=== PATIENT | male | born 1945 | race Caucasian/White ===

== ENCOUNTER 2017-12-26 08:14 | Inpatient (IN) | payer MEDICARE, BC ==
[~2017-12-26] VITALS: Ht 172.7 cm; Wt 93.4 kg
[2017-12-26] VITALS (12 sets, daily range): BP systolic 112–127; BP diastolic 70–91
[~2017-12-26 08:14] MED LIST: Gelfoam Absorbable 1gm powder pkt TOPIC ONE
[2017-12-26] MEDS ORDERED: Thrombin 5000 units spray kit TOPIC ONE (08:38)
[2017-12-26] MEDS ORDERED: Thrombin 5000 units TOPIC ONE ×2 (08:38→12:55)
[2017-12-26] MEDS ORDERED: Vancomycin 1gm inj IVPB ONE ×2 (08:38→09:56)
[2017-12-26] MEDS ORDERED: Lidocaine 1% 10mg/ml/Epi 0.005mg/ml 30ml vial INJ ONE (08:39)
[2017-12-26] MEDS ORDERED: Bacitracin 50000 Units Vial ONE (08:39)
[2017-12-26] MEDS ORDERED: Bupivacaine w/Epi 0.5% 30ml Vial INJ ONE (08:39)
[2017-12-26] MEDS ORDERED: Gelfoam Size TOPIC ONE (08:39)
[2017-12-26] MEDS ORDERED: MELOXICAM15 MG PO (09:16)
[2017-12-26] MEDS ORDERED: ASPIR 8181 MG ORAL (09:16)
[2017-12-26] MEDS ORDERED: ANASTROZOLE1 MG PO (09:16)
[2017-12-26] MEDS ORDERED: NORCO 5-325 TA1 EACH ORAL (09:16)
[2017-12-26] MEDS ORDERED: AMBIEN10 MG ORAL (09:16)
[2017-12-26] MEDS ORDERED: TESTOSTERONE PRO MC (09:16)
[2017-12-26] MEDS ORDERED: SINGULAIR10 MG ORAL (09:16)
[2017-12-26] MEDS ORDERED: OLOPATADINE H30.5 GM NS (09:16)
[2017-12-26] MEDS ORDERED: fentaNYL 100 mcg/2 mL IV ONE ×2 (09:34→10:06)
[2017-12-26] MEDS ORDERED: Midazolam 2mg/2ml Inj ONE ×2 (09:34→10:06)
[2017-12-26] MEDS ORDERED: Lidocaine 1% MPF 10mg/ml 5ml ONE ×2 (09:37→10:07)
[2017-12-26] MEDS ORDERED: Zemuron 50mg/5ml Inj IV ONE (09:58)
[2017-12-26] MEDS ORDERED: LR 1000ml ONE ×2 (10:00)
[2017-12-26] MEDS ORDERED: Propofol 1,000mg/ 100ml btl IV ONE (10:00)
[2017-12-26] MEDS ORDERED: Neostigmine 1mg/ml 10ml Inj ONE (10:00)
[2017-12-26] MEDS ORDERED: NS Irrig 1000ml ONE (10:00)
[2017-12-26] MEDS ORDERED: Sterile Water Irrig 1000ml IRRIG ONE (10:00)
[2017-12-26] MEDS ORDERED: Lidocaine 1% Plain 30 ml INJ ONE (10:09)
[2017-12-26] MEDS ORDERED: LR 1000ml 1,000 ML IVLG SCH (10:10)
--- NOTE | 2017-12-26 10:11 | Anethesia Preoperative Eval ---
Bunny Orozco MD 12/26/17 1011: Anesthesia Pre-op PMH/ROS General Date of Evaluation: Dec 26, 2017 Mallampati Score Class I : Soft palate, uvula, fauces, pillars visible Class II: Soft palate, uvula, fauces visible Class III: Soft palate, base of uvula visible Class IV: Only hard plate visible Allergies: Coded Allergies: PENICILLINS (Verified Allergy, Severe, 12/26/17) swelling, rash Patient NPO?: Yes NPO Date: Dec 25, 2017 NPO Time: 2300 Anesthesia Pre-op Phys. Exam Physician Exam Last Vital Signs Date Time Temp Pulse Resp B/P (MAP) Pulse Ox O2 Delivery O2 Flow Rate FiO2 12/26/17 09:06 97.7 77 18 124/91 (102) 97 12/26/17 09:06 Room Air Silas Weller MD 12/26/17 1131: Anesthesia Pre-op PMH/ROS General Date of Evaluation: Dec 26, 2017 Time of Evaluation: 10:05 Anesthesiologist: Janee ASA Score: ASA 2 Mallampati Classification: Class II Surgeon: Gris Diagnosis: Lumbar radiculopathy Surgical Procedure: L3 to S1 laminotomy with decompression Anesthesia History: none Allergies: Coded Allergies: PENICILLINS (Verified Allergy, Severe, 12/26/17) swelling, rash Medications: see eMAR Patient NPO?: Yes Past Medical History Cardiovascular: Denies: HTN, CAD, [place], valve dz, arrhythmia, other Pulmonary: Reports: RIAN; Denies: asthma, COPD, other Gastrointestinal/Genitourinary: Reports: GERD; Denies: CRI, ESRD, other Neurologic/Psychiatric: Reports: other - chronic pain; Denies: dementia, CVA, depression/anxiety, TIA Endocrine: Denies: DM, hypothyroidism, steroids, other HEENT: Denies: cataract (L), cataract (R), glaucoma, [place] (L), [place] (R), other Hematology/Immune: Denies: anemia, DVT, bleeding disorder, other Musculoskeletal/Integumentary: Reports: OA; Denies: RA, DJD, DDD, edema, other Other: obesity PMH Narrative: as above PSxH Narrative: Partial colectomy, knee scope Anesthesia Pre-op Phys. Exam Physician Exam Constitutional: NAD Neurologic: CN 2-12 intact Cardiovascular: RRR, no M/R/G Respiratory: CTA Gastrointestinal: other - obesity Airway Exam Mallampati Score: Class III MO: limited Neck: short ROM: full Teeth: missing Dentures: no upper, no lower Anesthesia Pre-op A/P Labs see chart Studies Pre-op Studies: EKG - NSR Risk Assessment & Plan Assessment: ASA 2 Plan: GA with ETT neuromonitoring Status Change Before Surgery: No Pre-Antibiotics Drug: Ancef 2 gr. Given Within 1 Hr of Incision: Yes Time Given: 10:49 Bunny Orozco MD Dec 26, 2017 10:11 Silas Weller MD Dec 26, 2017 11:31
[2017-12-26] MEDS ORDERED: oxyCODONE HCL/Acetaminophen 5/325mg ORAL PRN (10:15)
[2017-12-26] MEDS ORDERED: Atropine Sulfate 0.4mg/ml inj IVP PRN (10:15)
[2017-12-26] MEDS ORDERED: Metoclopramide 10mg/2ml Inj IVP PRN (10:15)
[2017-12-26] MEDS ORDERED: Meperidine 50mg/ml Inj(FOR RIGORS ONLY) IVP PRN (10:15)
[2017-12-26] MEDS ORDERED: Acetaminophen (Non formulary) 100 ML IV ONE (10:15)
[2017-12-26] MEDS ORDERED: Norco 5mg/325mg tab ORAL PRN (10:15)
[2017-12-26] MEDS ORDERED: fentaNYL 100 mcg/2 mL IV PRN ×2 (10:15→15:15)
[2017-12-26] MEDS ORDERED: DiphenhydrAMINE 50mg/ml Inj IVP PRN ×2 (10:15→15:15)
[2017-12-26] MEDS ORDERED: LORazepam Inj 2mg/ml 1ml IV PRN ×2 (10:15→15:15)
[2017-12-26] MEDS ORDERED: Midazolam 2mg/2ml Inj IVP PRN ×2 (10:15→15:15)
[2017-12-26] MEDS ORDERED: Ketorolac 30mg Inj IV PRN ×2 (10:15)
[2017-12-26] MEDS ORDERED: HYDROcodone/Acetamin 7.5/325 tab ORAL PRN (10:15)
[2017-12-26] MEDS ORDERED: Hydromorphone 0.5mg/0.5ml inj IVP PRN ×2 (10:15→15:15)
[2017-12-26] MEDS ORDERED: Dexamethasone 4mg/ml vial ONE (10:18)
[2017-12-26] MEDS ORDERED: Sodium Chloride 10ml vial INJ ONE (10:18)
--- NOTE | 2017-12-26 10:32 | Pre-Procedure Note/Attestation ---
Pre-Procedure Note/Attestation Complete Prior to Procedure Procedure Narrative: L3-S1 decompression/discectomy Indications for Procedure Pre-Operative Diagnosis: L3-S1 stenosis with LLE >>RLE radiculopathy Attestation I attest that I discussed the nature of the procedure; its benefits; risks and complications; and alternatives (and the risks and benefits of such alternatives ), prior to the procedure, with the patient (or the patient's legal claims customer service representative). I attest that, if there was a reasonable possibility of needing a blood transfusion, the patient (or the patient's legal claims customer service representative) was given the [facility] standardized written summary, pursuant to the [place] Blood Safety Act ([place] Health and Safety Code # 1645, as amended). I attest that I re-evaluated the patient just prior to the surgery and that there has been no change in the patient's H&P, except as documented below: Oliverio Landry MD Dec 26, 2017 10:32
--- NOTE | 2017-12-26 10:33 | Brief Operative Note ---
Immediate Post Operative Note Operative Note Pre-op Diagnosis: L3-S1 stenosis with LLE >>RLE radiculopathy Procedure: L3-S1 laminectomy, L45 discectomy Post-op Diagnosis: L Dural repair lysis of adhesions Post-op Diagnosis: same as pre-op Findings: consistent w/pre-op dx studies Surgeon: chelle Anesthesiologist: Dontae Anesthesia: general Specimen: none Complications: yes - durotomy Condition: stable Fluids: 1200 Estimated Blood Loss: volume - 200 Drains: none Implant(s) used?: No Oliverio Landry MD Dec 26, 2017 10:33
[2017-12-26] MEDS ORDERED: Glycopyrrolate 0.2mg/ml 1ml Vial ONE (13:41)
[2017-12-26] MEDS ORDERED: acetaZOLAMIDE 500mg Inj IVP SCH (14:15)
--- NOTE | 2017-12-26 14:41 | Immediate Post-Op Evaluation ---
Immediate Post-Op Evalulation Immediate Post-Op Evalulation Procedure: L3-L4-L5-S1 laminotomy with decompression Date of Evaluation: Dec 26, 2017 Time of Evaluation: 14:40 IV Fluids: 1200 Blood Products: none Estimated Blood Loss: 100 Urinary Output: 200 Blood Pressure Systolic: 114 Blood Pressure Diastolic: 68 Pulse Rate: 84 Respiratory Rate: 20 O2 Sat by Pulse Oximetry: 99 Temperature (Fahrenheit): 98.6 Pain Score (1-10): 1 Nausea: No Vomiting: No Patient Status: reacts, patent, extubated, none Hydration Status: adequate Silas Weller MD Dec 26, 2017 14:41
--- NOTE | 2017-12-26 14:51 | Diagnostic Imaging Report ---
Indication: Back pain. Technique: Intraoperative fluoroscopic images from spinal surgery submitted for archival the PACS. Operating surgeon: Oliverio Landry MD Total fluoroscopy time: 14.1 seconds Total fluoroscopy dose: 9.4 mGy. Comparison: None Findings: Multiple intraoperative fluoroscopic images submitted for archival the PACS. Initial image demonstrates scoliosis and multilevel degenerative change of the lumbar spine. Subsequent images in the lateral projection demonstrate surgical measurements projecting over the posterior aspects of the level of L5-S1 and subsequently L4-L5. Impression: Fluoroscopic images from spinal surgery as detailed above. See operative report.
[2017-12-26] MEDS ORDERED: acetaZOLAMIDE 500mg Inj ONE (15:30)
[2017-12-26] MEDS ORDERED: Milk of Magnesia 30ml Ud ORAL PRN (17:00)
--- NOTE | 2017-12-26 17:15 | Operative Note - Dictated ---
DATE OF OPERATION: 12/26/2017 SURGEON: Oliverio Landry M.D. BATTERY FILLER: None. ANESTHESIOLOGIST: Bunny Orozco M.D. ANESTHESIA TYPE: General endotracheal anesthesia. PREOPERATIVE DIAGNOSES: 1. Scoliosis, severe, lumbar spine. 2. Spinal stenosis, L3 through S1. 3. Severe right greater than left foraminal stenosis and radiculopathy. 4. Left-sided disc herniation L5-S1 with cephalad extrusion under the L5 nerve root. OPERATION PERFORMED: 1. Laminectomy bilateral performed through a left-sided approach at L3-L4, L4-L5, L5-S1. 2. Discectomy L5 (disc extrusion from the L5-S1 level, but with cephalad migration to above the L5 nerve root). 3. Severe stenosis and deformity complicating the procedure above and beyond normal decompression. 4. Need for lysis of adhesions due to severe chronic deformity and inflammatory changes. 5. Dural repair left side at the level of the L4-L5 interspace. 6. Use of operating microscope. 7. Use of fluoroscopy for localizing purposes. 8. Neurodiagnostic monitoring. INDICATIONS: The patient is a very pleasant gentleman with chronic problems with regards to his back and pain down his right lower extremity. Recently, however, the pain has become very severe, but on the left side. MRI confirmed a new disc herniation left side, L5-S1. The patient does have epidural lipomatosis at L3 through S1 with notable stenosis both centrally and lateral recess. There is foraminal stenosis, right side greater than left at the L5-S1 level. Chronic pain management has been required to keep his symptoms under control. They have been progressively worsening. I did discuss with him the option of a spinal fusion, scoliosis correction versus decompression alone. He sought multiple opinions and elected to proceed with decompression alone. Due to the significant deformity, I offered him a minimally invasive decompression so as to not further significantly destabilize the spine. RISKS NOTE: The patient was explained in detail risks, benefits of surgery to include, but not be limited to those of bleeding, infection, damage to nerves, vessels, tendons, anesthetic risk, allergic reaction, aspiration, possibly . The patient understood and wished to proceed. OPERATIVE PROCEDURE IN DETAIL: The patient was taken to the operative suite. After general endotracheal anesthesia was obtained, Hein catheter was placed. He was turned prone onto a radiolucent table. Fluoroscope was brought into better identify the segments and the degree of deformity. At this point, the skin was marked after needle was placed and fluoroscopically the levels were identified. The back was then prepped and draped in usual sterile fashion. A midline incision was carried out from L3 through S1. Subperiosteal dissection was carried out bilaterally. The fluoroscope was used to identify the L5-S1 interspace. At this point, with use of a high-speed drill under microscopic visualization, laminotomy of the L5 level was performed. Medial facetectomy was performed. The anatomy was markedly altered and this decompression was particularly made far more difficult due to the patient's deformity, chronic inflammatory change, and spondylosis. At this point, the ligamentum flavum was identified and it was removed in a piecemeal fashion. It was noted that due to the deformity, the dural sac was shifted towards the left side, which then allowed me to perform a decompression of the lateral recess on the right side through a left-sided approach. At this point, the laminectomy was extended all the way up to the L3 level. In this process, we were able to remove in a piecemeal fashion the lamina using high-speed drill as well as curved curettes and Kerrison punch as well as removal of the ligamentum flavum. Extensive facet hypertrophy was noted at L4-L5 and L3-L4. As we extended cephalad at the L5 nerve roots, we were able to palpate significant fullness more general, aggression generous, lateral decompression was performed so as to allow us to be lateral to the dural sac and then be able to mobilize the dural sac medially at or about the level of the L5 vertebra. At this point, we were able to place a nerve root retractor and gently retract. Immediately on the left side, identifying the disc extrusion. The disc extrusion was removed in a piecemeal fashion. Copious irrigation was performed. FloSeal was applied to achieve hemostasis. At this point, it was elected not to perform a discectomy of the disc space itself due to the patient's deformity and the risk for further destabilization. At this point, the dissection was carried out further cephalad at the L4-L5 level and the facet joint was noted to be extremely hypertrophied and adherent to the dural sac. A shell of facet was removed and in the process two punctate areas of avulsion of the dura were noted. This area was packed off. Dissection was carried out all the way to the lamina of L3 and a inferior laminectomy of L3 was achieved. Through this left-sided approach, a laminotomy of the contralateral side was performed by removing the ligamentum flavum and the inner table of the lamina. FloSeal was applied. Packing was applied. Attention was then turned to the L4 level where there was a dural leak and in a running fashion using 6-0 Prolene, the dura was repaired in a watertight fashion. At this point, copious irrigation was applied. The left side was packed off. The right side was visualized and fluoroscopically the L5-S1 interspace was identified. Laminectomy of L5 and superior portion of S1 and medial facetectomy was achieved essentially skeletonizing the L5 nerve root through the neural foramina. Copious irrigation was performed. FloSeal was then applied on the left side. I was able to place a small piece of DuraGen on the dural repair as well as 4 mL of fibrin glue/Tisseel. Once this was achieved and a watertight closure was achieved, decision was made to close. Please note that prior to application of the DuraGen and Tisseel, copious irrigation was performed. The fascia was repaired using #1 Vicryl, subcutaneous closure using 2-0 Vicryl. Dermabond was applied. Please note that a drain was not placed due to the potential risk of problems with CSF leakage. A sterile dressing was applied. The patient was turned onto his back, will be transferred to recovery room in stable condition. Oliverio Landry M.D. DR: FLORINA JOB#: [id number] CC: YONNY
[2017-12-26] MEDS: Docusate 100mg cap ORAL SCH (18:04)
[2017-12-26] MEDS: D5 1/2NS 1,000 ML IV SCH (18:05)
[2017-12-26] MEDS ORDERED: HYDROmorphone 1mg/ml Carpuject SUBQ SCH (20:28)
[2017-12-26] MEDS ORDERED: Zolpidem 5mg tab ORAL PRN ×3 (20:30→20:45)
[2017-12-26] MEDS: ceFAZolin sod 1 GM in D5W 55 ML IV SCH (21:12)
[2017-12-26] MEDS: Dronabinol 2.5mg Cap ORAL SCH (22:21)
--- NOTE | 2017-12-26 23:30 | Consultation ---
DATE OF CONSULTATION: 12/26/2017 CONSULTING PHYSICIAN: Kale Benavidez M.D. REFERRING PHYSICIAN: Oliverio Landry M.D. REASON FOR CONSULTATION: Acute pain consult. Dear Dr. Oliverio Landry, Thank you kindly for consulting me to evaluate and render an opinion as to how to proceed in the management of the acute postoperative lumbar spine pain after multiple level lumbar spine surgery today. I saw the patient at bedside on your request to help with his postoperative pain control. I saw the patient at bedside. I performed detailed history and physical examination. I discussed the case with the hospital pharmacist, Jus, along with yourself, Dr. Landry. I reviewed the medical record in detail including advanced directives. PAST MEDICAL HISTORY: 1. Acute postoperative lumbar spine pain, status post multiple level lumbar spine surgery by Dr. Oliverio Landry in December 2017. 2. Elderly age. 3. Incidental dural leak, tear. 4. Insomnia. 5. Asthma. 6. 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 7. Distant tobacco usage. 8. Mild obesity. 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 ALLERGIES: Penicillin. MEDICATIONS AT HOME: Baby aspirin, Arimidex, Davis, meloxicam, Singulair, olopatadine, testosterone, Ambien. SOCIAL HISTORY: The patient lives in [place]. For the past 3 months, he has been seeing a medical marijuana doctor to help with his pain. He has been using sublingual marijuana a couple of times per week to help with pain and insomnia. FAMILY HISTORY: Diabetes, stroke, coronary artery disease. REVIEW OF SYSTEMS: Per the hospitalist. PHYSICAL EXAMINATION: VITAL SIGNS: Age 72. Height 5 feet 8 inches, weight 209 pounds, body-mass index 31. HEENT: Normocephalic, atraumatic. CHEST: Clear to auscultation. HEART: Regular rate and rhythm. BACK: Lumbar spine, pain with logrolling. Moving all extremities x4. NEUROLOGIC: Detailed neurologic exam per Dr. Landry. LABORATORY STUDIES: From December 18, 2017, shows white count 6, hematocrit 48, platelets 167,000. INR 1.0. BUN 29, creatinine 1.1, sodium 143, potassium 4.5, chloride 108, bicarbonate 25, calcium 10.0, glucose 77. Urinalysis is negative. White count 7, hematocrit 47, platelets 182,000. A 12-lead EKG shows normal sinus rhythm, ventricular rate 71. Preoperative chest x-ray shows no active cardiopulmonary disease. MRI of lumbar spine shows 5 mm broad-based disc protrusion at L5-S1, 2 mm retrolisthesis of L4 on L5, 3 mm retrolisthesis of L2 on L3, with 5 mm disk osteophyte complex. IMPRESSION: 1. Acute postoperative lumbar spine pain, status post multiple level lumbar spine surgery by Dr. Oliverio Landry in December 2017. 2. Elderly age. 3. Incidental dural leak, tear. 4. Insomnia. 5. Asthma. 6. 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 7. Distant tobacco usage. 8. Mild obesity. RECOMMENDATIONS: The patient is a 72-year-old gentleman. He had an intrathecal dural tear and will remain on bed rest in the flat position per Dr. Landry. To help with discomfort while in the bed-rest condition, I have devised the following analgesic plan. The patient has used oxycodone or Percocet in the past. He states Percocet has been working stronger than the Davis, which he had been taking in the past. He is a recovering alcoholic and does not use any benzodiazepines at home. He quit tobacco long ago, but has been using sublingual marijuana a couple of times per week for the past 3 months. I recommended the patient a trial of Marinol this evening for baseline analgesia with an alternate between breakthrough subcutaneous doses of Dilaudid 1 mg every three hours p.r.n. along with oxycodone 10 mg orally every three hours p.r.n. as well. The patient is a heavy coffee drinker, drinking at least 2 to 3 cups per day. He currently has a strong bilateral frontal headache. This could be both caffeine withdrawal as well as symptoms from the spinal leak. I have moved the position of his bed back to completely supine, per the surgeon. We will continue to treat the patient symptomatically. Sequential compression pneumatic devices have been ordered for DVT prophylaxis while the patient will be on bed rest. I will defer usage of incentive spirometer to the surgeon, Dr. Landry. if permitted after his dural leak. I have ordered Zofran 4 mg intravenously every 4 hours p.r.n. for nausea or vomiting complaints. I have ordered Benadryl 25 mg q.6 hours in case of any itching complaints. I have ordered Mylanta 30 mL q.6 hours in case of any GERD symptom exacerbation. I will place the patient on b.i.d. Pepcid for GI ulcer prophylaxis. I have also ordered a dose of Mylanta 30 mL q.6 hours in case of any GERD symptom exacerbation. The patient does use Ambien chronically for his insomnia. I have made it available on a p.r.n. basis. I will defer the patient's other medical issues to the hospitalist. Kale Benavidez M.D. DR: Xena JOB#: [id number] CC:
[2017-12-26] MEDS: oxyCODONE 5mg IR tab ORAL PRN (23:31)
[2017-12-27 00:15] VITALS: BP 124/71
[2017-12-27] MEDS: D5 1/2NS 1,000 ML IV SCH ×3 (02:03→23:46)
[2017-12-27] MEDS: HYDROmorphone 1mg/ml Carpuject SUBQ PRN ×5 (02:03→21:30)
[2017-12-27 04:12] VITALS: BP 128/75
[2017-12-27] MEDS: ceFAZolin sod 1 GM in D5W 55 ML IV SCH ×2 (05:31→13:05)
[2017-12-27 06:33] LABS: BASOPHILS % (AUTO) 0.3 % (0.0-2.0); HEMATOCRIT 39.1 % (42.0-52.0); HEMOGLOBIN 13.6 G/DL (14.2-18.0); LYMPHOCYTES % (AUTO) 10.4 % (20.0-45.0); MEAN CORPUSCULAR VOLUME 90 FL (80-99); MONOCYTES % (AUTO) 6.2 % (1.0-10.0); NEUTROPHILS % (AUTO) 83.1 % (45.0-75.0); PLATELET COUNT 185 K/UL (150-450); RED BLOOD COUNT 4.36 M/UL (4.70-6.10); RED CELL DISTRIBUTION WIDTH 10.9 % (11.6-14.8); WHITE BLOOD COUNT 10.8 K/UL (4.8-10.8)
[2017-12-27 08:00] VITALS: BP 105/68
[2017-12-27] MEDS: Anastrazole 1mg tab ORAL SCH (08:36)
[2017-12-27] MEDS: Docusate 100mg cap ORAL SCH ×2 (08:37→17:24)
--- NOTE | 2017-12-27 08:38 | Orthopedic Spine Progress Note ---
Ortho Spine - Progress Note Subjective Symptoms: c/o post-op back pain, improved - as compared to pre-op, other - mild VENEGAS Objective Vital Signs: Last 24 Hour Vital Signs Date Time Temp Pulse Resp B/P (MAP) Pulse Ox O2 Delivery O2 Flow Rate FiO2 12/27/17 08:07 Nasal Cannula 2.0 12/27/17 08:00 98.8 89 19 105/68 (80) 100 12/27/17 04:12 98.5 94 16 128/75 (92) 97 12/27/17 00:15 98.2 93 18 124/71 (88) 97 12/26/17 21:00 Nasal Cannula 2.0 12/26/17 20:16 98.7 91 18 127/85 (99) 97 12/26/17 17:00 98.4 90 18 118/72 (87) 94 12/26/17 16:00 Nasal Cannula 2.0 12/26/17 16:00 98.4 95 18 119/80 (93) 95 12/26/17 15:40 98.6 12/26/17 15:40 98.6 88 15 115/73 96 Nasal Cannula 3 12/26/17 15:30 80 15 113/72 96 Nasal Cannula 3 12/26/17 15:15 80 13 112/70 96 Nasal Cannula 3 12/26/17 15:10 91 15 126/76 97 Nasal Cannula 3 12/26/17 15:00 94 18 122/78 97 Nasal Cannula 3 12/26/17 14:52 91 16 118/77 97 Simple Mask 6 12/26/17 14:41 84 20 99 12/26/17 14:37 99 16 112/76 97 Simple Mask 6 12/26/17 14:32 98.2 92 20 114/77 97 Simple Mask 6 12/26/17 09:06 97.7 77 18 124/91 (102) 97 12/26/17 09:06 Room Air I&O: Intake and Output 12/26/17 12/27/17 18:59 06:59 Intake Total 1500 ml 1690 ml Output Total 800 ml 1300 ml Balance 700 ml 390 ml Intake Oral 200 ml 480 ml IV Total 1300 ml 1210 ml Output Urine Total 700 ml 1100 ml Emesis 200 ml Estimated Blood Loss 100 ml # Voids 1 1 Drains: none Neuro Status: normal Assessment Post-op Diagnosis: L Dural repair lysis of adhesions Procedure Performed: L3-S1 laminectomy, L45 discectomy Plan Plan: PT - logroll instruction for 24 hrs, pain management Additional Comments: cont flat in bed x 24 hrs. sitting tiral tomorrow Oliverio Landry MD Dec 27, 2017 08:38
[2017-12-27] MEDS ORDERED: TESTOSTERONE 200 MG/ML TOPIC SCH (09:00)
[2017-12-27] MEDS ORDERED: Aspirin EC 81mg tab ORAL SCH (09:00)
[2017-12-27] MEDS ORDERED: Meloxicam 15 MG TAB ORAL SCH (09:00)
--- NOTE | 2017-12-27 11:28 | Internal Med Progress Note ---
Subjective Date of Service: Dec 27, 2017 Physician Name SeguraAntoine Attending Physician Oliverio Landry MD Current Medications Medications (Trade) Dose Ordered Sig/Pam Route PRN Reason Start Time Stop Time Status Last Admin Dose Admin Acetaminophen (Tylenol) 650 mg Q4H PRN ORAL headache or temp>101 12/26/17 17:00 01/25/18 16:59 Acetaminophen/ Butalbital/ Caffeine (Fioricet) 1 tab Q8H PRN ORAL headache 12/26/17 20:15 01/25/18 20:14 Al Hydroxide/Mg Hydroxide (Mylanta) 30 ml Q6H PRN ORAL gerd/dyspepsa 12/26/17 20:15 01/25/18 20:14 Anastrozole (Arimidex) 1 mg DAILY ORAL 12/27/17 09:00 01/26/18 08:59 12/27/17 08:36 Cefazolin Sodium 1 gm/Dextrose 55 ml @ 110 mls/hr Q8H IV 12/26/17 21:30 12/27/17 13:59 12/27/17 05:31 Dextrose/Sodium Chloride 1,000 ml @ 100 mls/hr Q10H IV 12/26/17 17:00 01/25/18 16:59 12/27/17 02:03 Diphenhydramine HCl (Benadryl) 25 mg Q6H PRN ORAL Itching 12/26/17 20:15 01/25/18 20:14 Docusate Sodium (Colace) 100 mg TWICE A DAY ORAL 12/26/17 18:00 01/25/18 17:59 12/27/17 08:37 Dronabinol (Marinol) 2.5 mg Q24H ORAL 12/26/17 22:00 01/25/18 21:59 12/26/17 22:21 Famotidine (Pepcid) 20 mg BID ORAL 12/26/17 21:00 01/25/18 20:59 12/27/17 08:36 Hydromorphone HCl (Dilaudid) 1 mg Q3H PRN SUBQ Severe Breakthru Pain (>7) 12/26/17 20:30 01/02/18 20:29 12/27/17 06:21 Magnesium Hydroxide (Mom) 30 ml QIDPRN PRN ORAL Constipation 12/26/17 17:00 01/25/18 16:59 Ondansetron HCl (Zofran) 4 mg Q4H PRN IVP Nausea & Vomiting 12/26/17 20:15 01/25/18 20:14 12/27/17 02:24 Oxycodone HCl (Roxicodone) 10 mg Q3H PRN ORAL Moderate Breakthru Pain (5-7) 12/26/17 20:30 01/02/18 20:29 12/26/17 23:31 Promethazine HCl (Phenergan) 12.5 mg Q8H PRN IM Nausea & Vomiting 12/26/17 20:30 01/25/18 20:14 Zolpidem Tartrate (Ambien) 5 mg HSPRN PRN ORAL Insomnia 12/26/17 20:45 01/02/18 20:29 Zolpidem Tartrate (Ambien) 5 mg HSPRN PRN ORAL Insomnia 12/26/17 20:45 01/02/18 20:44 Allergies: Coded Allergies: PENICILLINS (Verified Allergy, Severe, 12/26/17) swelling, rash ROS Limited/Unobtainable: No Constitutional: Reports: no symptoms HEENT: Reports: no symptoms Cardiovascular: Reports: no symptoms Respiratory: Reports: no symptoms Gastrointestinal/Abdominal: Reports: no symptoms Genitourinary: Reports: no symptoms Neurologic/Psychiatric: Reports: no symptoms Subjective 72 YO M admitted with lumbar stenosis. S/P L3-S1 laminectomy and L4-5 discectomy on 12/26/17. Cover for Matilde Shaikh-Dr Cavazos. Objective Last Vital Signs Date Time Temp Pulse Resp B/P (MAP) Pulse Ox O2 Delivery O2 Flow Rate FiO2 12/27/17 08:07 Nasal Cannula 2.0 12/27/17 08:00 98.8 89 19 105/68 (80) 100 General Appearance: WD/WN, alert, mild distress EENT: PERRL/EOMI, normal ENT inspection Neck: non-tender, normal alignment, supple, normal inspection Cardiovascular: normal peripheral pulses, normal rate, regular rhythm, no gallop/murmur, no JVD Respiratory/Chest: chest wall non-tender, lungs clear, normal breath sounds, no respiratory distress, no accessory muscle use Abdomen: normal bowel sounds, non tender, soft, no organomegaly, no mass Extremities: normal range of motion Neurologic: shipping and receiving assistant II-XII grossly normal, no motor/sensory deficits Skin: normal pigmentation, warm/dry Laboratory Tests Test 12/27/17 05:52 White Blood Count 10.8 K/UL (4.8-10.8) Red Blood Count 4.36 M/UL (4.70-6.10) L Hemoglobin 13.6 G/DL (14.2-18.0) L Hematocrit 39.1 % (42.0-52.0) L Mean Corpuscular Volume 90 FL (80-99) Mean Corpuscular Hemoglobin 31.3 PG (27.0-31.0) H Mean Corpuscular Hemoglobin Concent 34.8 G/DL (32.0-36.0) Red Cell Distribution Width 10.9 % (11.6-14.8) L Platelet Count 185 K/UL (150-450) Mean Platelet Volume 6.7 FL (6.5-10.1) Neutrophils (%) (Auto) 83.1 % (45.0-75.0) H Lymphocytes (%) (Auto) 10.4 % (20.0-45.0) L Monocytes (%) (Auto) 6.2 % (1.0-10.0) Eosinophils (%) (Auto) 0.0 % (0.0-3.0) Basophils (%) (Auto) 0.3 % (0.0-2.0) Microbiology Date/Time Source Procedure Growth Status 12/26/17 09:05 Nasal Nares MRSA Culture - Preliminary Resulted Intake and Output 12/26/17 12/27/17 18:59 06:59 Intake Total 1500 ml 1690 ml Output Total 800 ml 1300 ml Balance 700 ml 390 ml Intake Oral 200 ml 480 ml IV Total 1300 ml 1210 ml Output Urine Total 700 ml 1100 ml Emesis 200 ml Estimated Blood Loss 100 ml # Voids 1 1 Assessment/Plan Problem List: (1) Stenosis, spinal, lumbar Assessment & Plan: S/P L3-S1 laminectomy 12/26/17-see surgery note. (2) Scoliosis (3) Lumbar herniated disc Assessment & Plan: S/P L4-5 discectomy. Status: not improved Antoine Segura MD Dec 27, 2017 11:28
[2017-12-27 12:00] VITALS: BP 121/66
--- NOTE | 2017-12-27 12:49 | 48 Hour Post Anesthesia Eval ---
Post Anesthesia Evaluation Procedure: L3-L4-L5-S1 laminotomy with decompression Date of Evaluation: Dec 27, 2017 Time of Evaluation: 12:48 Blood Pressure Systolic: 132 0: 68 Pulse Rate: 74 Respiratory Rate: 20 Temperature (Fahrenheit): 97.6 O2 Sat by Pulse Oximetry: 98 Airway: patent Nausea: No Vomiting: No Pain Intensity: 3 Hydration Status: adequate Cardiopulmonary Status: stable Mental Status/LOC: patient returned to baseline Follow-up Care/Observations: n/a Post-Anesthesia Complications: none Follow-up care needed: N/A Silas Weller MD Dec 27, 2017 12:49
[2017-12-27 16:00] VITALS: BP 117/77
--- NOTE | 2017-12-27 18:30 | Progress Note ---
DATE: 12/27/2017 ACUTE PAIN MANAGEMENT PHYSICIAN PROGRESS NOTE MEDICATIONS: Medication administration record reviewed. Medications include IV fluids, Colace, Pepcid, Arimidex, nightly Marinol. P.r.n. medications include Tylenol, milk of magnesia, Zofran, Fioricet, Benadryl, Mylanta, Phenergan, Roxicodone, Dilaudid, Ambien. VITAL SIGNS: Afebrile, pulse 74, respirations 20, blood pressure 121/66, oxygen saturation 98% on supplemental oxygen. LABORATORY STUDIES: From this morning, December 27, 2017, shows white count 11, hematocrit 39, platelets 185,000. I saw the patient at bedside. I discussed the case with the surgeon, Dr. Landry, along with the orthopedic floor nurse, YULIET Cross. Also discussed the case with the hospital pharmacist, Jus. The patient remains on bed rest after his dural leak repair. We will see tomorrow if his headaches are symptomatic with sitting protocol. I did ask the nurse to instruct Dietary to provide a caffeinated/total coffee with each meal, I do not wish to complicate the headache picture with caffeine withdrawal, as the patient does admit to significantly drinking several cups of coffee each day. The patient denies any shortness of breath or chest pain. The patient used nightly Marinol last night along with oxycodone and subcutaneous Dilaudid in the past 12 hours. There have been no adverse side effects and I will continue the current analgesic regimen as listed. I will leave a prescription for Percocet tablets for outpatient usage. The patient is to continue with sequential compression pneumatic devices in place for DVT prophylaxis. We will continue supportive care and see how the patient tolerates ambulation tomorrow with physical therapy. Kale Benavidez M.D. DR: Xena JOB#: [id number] CC:
[2017-12-27 20:00] VITALS: BP 128/74
[2017-12-27] MEDS: Dronabinol 2.5mg Cap ORAL SCH (21:23)
[2017-12-28] VITALS: BP 127/79
[2017-12-28] MEDS: HYDROmorphone 1mg/ml Carpuject SUBQ PRN ×4 (01:23→21:27)
[2017-12-28 04:00] VITALS: BP 133/77
[2017-12-28 05:49] LABS: BASOPHILS % (AUTO) 0.7 % (0.0-2.0); EOSINOPHILS % (AUTO) 0.4 % (0.0-3.0); HEMATOCRIT 38.2 % (42.0-52.0); HEMOGLOBIN 13.1 G/DL (14.2-18.0); LYMPHOCYTES % (AUTO) 14.5 % (20.0-45.0); MEAN CORPUSCULAR VOLUME 90 FL (80-99); MONOCYTES % (AUTO) 8.4 % (1.0-10.0); PLATELET COUNT 155 K/UL (150-450); RED BLOOD COUNT 4.27 M/UL (4.70-6.10); RED CELL DISTRIBUTION WIDTH 11.1 % (11.6-14.8)
[2017-12-28 05:57] LABS: ANION GAP 9 mmol/L (5-15); BLOOD UREA NITROGEN 21 mg/dL (7-18); CALCIUM 8.9 MG/DL (8.5-10.1); CARBON DIOXIDE 26 MMOL/L (21-32); CHLORIDE 104 MMOL/L (98-107); CREATININE 1.1 MG/DL (0.55-1.30); POTASSIUM 3.3 MMOL/L (3.5-5.1); SODIUM 139 MMOL/L (136-145)
[2017-12-28 08:00] VITALS: BP 146/83
[2017-12-28] MEDS: Docusate 100mg cap ORAL SCH ×2 (08:54→18:16)
[2017-12-28] MEDS: Anastrazole 1mg tab ORAL SCH (08:54)
[2017-12-28] MEDS: oxyCODONE 5mg IR tab ORAL PRN ×3 (09:03→19:18)
--- NOTE | 2017-12-28 09:38 | Orthopedic Spine Progress Note ---
Ortho Spine - Progress Note Subjective Symptoms: c/o post-op back pain, improved, other - minimal VENEGAS at flat in bed, No change with sitting tollerance now at 50 degrees Objective Vital Signs: Last 24 Hour Vital Signs Date Time Temp Pulse Resp B/P (MAP) Pulse Ox O2 Delivery O2 Flow Rate FiO2 12/28/17 08:00 99.0 86 19 146/83 (104) 95 12/28/17 04:00 98.4 76 18 133/77 (95) 94 12/28/17 00:00 98.7 90 18 127/79 (95) 94 12/27/17 21:00 Room Air 12/27/17 20:00 97.4 81 18 128/74 (92) 95 12/27/17 16:47 97.6 12/27/17 16:00 99.8 85 17 117/77 (90) 98 12/27/17 12:49 74 20 98 12/27/17 12:00 99.2 86 18 121/66 (84) 100 I&O: Intake and Output 12/27/17 12/28/17 19:00 07:00 Intake Total 1155 ml 1180 ml Output Total 1300 ml 1200 ml Balance -145 ml -20 ml Intake Oral 350 ml 480 ml IV Total 805 ml 700 ml Output Urine Total 1300 ml 1200 ml Wound: clean Drains: none Neuro Status: other - inproved L foot ext as compared to preop Assessment Post-op Diagnosis: L Dural repair lysis of adhesions Procedure Performed: L3-S1 laminectomy, L45 discectomy Plan Plan: PT, pain management, discharge plan Additional Comments: continue sitting tolerance test. If no VENEGAS, start PT, ambulate and DC Oliverio Darnell MD Dec 28, 2017 09:37
[2017-12-28] MEDS ORDERED: Tubing IV Secondary IV ONE (09:53)
[2017-12-28] MEDS ORDERED: D5 1/2NS 1000ml IV ONE (09:53)
--- NOTE | 2017-12-28 11:45 | Progress Note ---
DATE: 12/28/2017 ACUTE PAIN MANAGEMENT PHYSICIAN PROGRESS NOTE MEDICATIONS: Medication administration record reviewed. Medications include IV fluids, Colace, Pepcid, Arimidex, Marinol, Tylenol, milk of magnesia, Zofran, Fioricet, Benadryl, Mylanta, Phenergan, Roxicodone, Dilaudid, Ambien. LABORATORY STUDIES: From this morning, December 28, 2017, shows white count 9, hematocrit 38, platelets 155,000. Sodium 139, potassium 3.3, chloride 104, bicarbonate 26, BUN 21, creatinine 1.1, glucose 136, calcium 8.9. I saw the patient at the bedside. I discussed the case with physical therapist and the nurse, RN . The patient is sitting in a chair. He was evaluated by Dr. Landry earlier this morning, and was cleared to begin ambulating. The patient's headaches are mild at-worst. He is drinking caffeinated drinks including coffee to help avoid any caffeine-withdrawal headaches, which may complicate his headache examination. The Hein catheter will be removed. I will discontinue his IV fluids since he is able to sit up and eat regular food. He denies any nausea symptoms. The pain has been well tolerated alternating between the breakthrough Dilaudid injections and the oral oxycodone. The patient states that the nighttime dose of Marinol has been unnecessary, so I would discontinue this dose. The patient does have a gel sublingual marijuana tablets to use at home if he decides to go that route. An incentive spirometer has been ordered to encourage good pulmonary toilet. The patient will continue with physical therapy as tolerated. I will supplement the patient's low potassium with oral K-Dur 40 milliequivalents x1. Overall, the patient is much improved. I already left a prescription for Percocet for outpatient usage. I will defer discharge planning to the surgeon, Dr. Landry. Kale Benavidez M.D. DR: Xena JOB#: [id number] CC:
[2017-12-28 12:00] VITALS: BP 138/78
--- NOTE | 2017-12-28 13:12 | Internal Med Progress Note ---
Subjective Date of Service: Dec 28, 2017 Physician Name Antoine Segura Attending Physician Oliverio Landry MD Current Medications Medications (Trade) Dose Ordered Sig/Pam Route PRN Reason Start Time Stop Time Status Last Admin Dose Admin Acetaminophen (Tylenol) 650 mg Q4H PRN ORAL headache or temp>101 12/26/17 17:00 01/25/18 16:59 Acetaminophen/ Butalbital/ Caffeine (Fioricet) 1 tab Q8H PRN ORAL headache 12/26/17 20:15 01/25/18 20:14 Al Hydroxide/Mg Hydroxide (Mylanta) 30 ml Q6H PRN ORAL gerd/dyspepsa 12/26/17 20:15 01/25/18 20:14 Anastrozole (Arimidex) 1 mg DAILY ORAL 12/27/17 09:00 01/26/18 08:59 12/28/17 08:54 Diphenhydramine HCl (Benadryl) 25 mg Q6H PRN ORAL Itching 12/26/17 20:15 01/25/18 20:14 Docusate Sodium (Colace) 100 mg TWICE A DAY ORAL 12/26/17 18:00 01/25/18 17:59 12/28/17 08:54 Famotidine (Pepcid) 20 mg BID ORAL 12/26/17 21:00 01/25/18 20:59 12/28/17 08:54 Hydromorphone HCl (Dilaudid) 1 mg Q3H PRN SUBQ Severe Breakthru Pain (>7) 12/26/17 20:30 01/02/18 20:29 12/28/17 11:29 Magnesium Hydroxide (Mom) 30 ml QIDPRN PRN ORAL Constipation 12/26/17 17:00 01/25/18 16:59 Ondansetron HCl (Zofran) 4 mg Q4H PRN IVP Nausea & Vomiting 12/26/17 20:15 01/25/18 20:14 12/28/17 08:54 Oxycodone HCl (Roxicodone) 10 mg Q3H PRN ORAL Moderate Breakthru Pain (5-7) 12/26/17 20:30 01/02/18 20:29 12/28/17 09:03 Promethazine HCl (Phenergan) 12.5 mg Q8H PRN IM Nausea & Vomiting 12/26/17 20:30 01/25/18 20:14 12/27/17 16:13 Zolpidem Tartrate (Ambien) 5 mg HSPRN PRN ORAL Insomnia 12/26/17 20:45 01/02/18 20:29 Allergies: Coded Allergies: PENICILLINS (Verified Allergy, Severe, 12/26/17) swelling, rash ROS Limited/Unobtainable: No Constitutional: Reports: no symptoms HEENT: Reports: no symptoms Cardiovascular: Reports: no symptoms Respiratory: Reports: no symptoms Gastrointestinal/Abdominal: Reports: no symptoms Genitourinary: Reports: no symptoms Neurologic/Psychiatric: Reports: no symptoms Subjective 72 YO M admitted with lumbar stenosis. S/P L3-S1 laminectomy and L4-5 discectomy on 12/26/17. Cover for Int Med-Dr Cavazos. Objective Last Vital Signs Date Time Temp Pulse Resp B/P (MAP) Pulse Ox O2 Delivery O2 Flow Rate FiO2 12/28/17 08:00 99.0 86 19 146/83 (104) 95 12/27/17 21:00 Room Air 12/27/17 08:07 2.0 Laboratory Tests Test 12/28/17 05:05 White Blood Count 9.0 K/UL (4.8-10.8) Red Blood Count 4.27 M/UL (4.70-6.10) L Hemoglobin 13.1 G/DL (14.2-18.0) L Hematocrit 38.2 % (42.0-52.0) L Mean Corpuscular Volume 90 FL (80-99) Mean Corpuscular Hemoglobin 30.6 PG (27.0-31.0) Mean Corpuscular Hemoglobin Concent 34.2 G/DL (32.0-36.0) Red Cell Distribution Width 11.1 % (11.6-14.8) L Platelet Count 155 K/UL (150-450) Mean Platelet Volume 6.4 FL (6.5-10.1) L Neutrophils (%) (Auto) 76.0 % (45.0-75.0) H Lymphocytes (%) (Auto) 14.5 % (20.0-45.0) L Monocytes (%) (Auto) 8.4 % (1.0-10.0) Eosinophils (%) (Auto) 0.4 % (0.0-3.0) Basophils (%) (Auto) 0.7 % (0.0-2.0) Sodium Level 139 MMOL/L (136-145) Potassium Level 3.3 MMOL/L (3.5-5.1) L Chloride Level 104 MMOL/L (98-107) Carbon Dioxide Level 26 MMOL/L (21-32) Anion Gap 9 mmol/L (5-15) Blood Urea Nitrogen 21 mg/dL (7-18) H Creatinine 1.1 MG/DL (0.55-1.30) Estimat Glomerular Filtration Rate > 60 mL/min (>60) Glucose Level 136 MG/DL (74-106) H Calcium Level 8.9 MG/DL (8.5-10.1) Microbiology Date/Time Source Procedure Growth Status 12/26/17 09:05 Nasal Nares MRSA Culture - Final NO METHICILLIN RESISTANT STAPH AUREUS... Complete Intake and Output 12/27/17 12/28/17 19:00 07:00 Intake Total 1155 ml 1180 ml Output Total 1300 ml 1200 ml Balance -145 ml -20 ml Intake Oral 350 ml 480 ml IV Total 805 ml 700 ml Output Urine Total 1300 ml 1200 ml Objective General Appearance: WD/WN, alert, mild distress EENT: PERRL/EOMI, normal ENT inspection Neck: non-tender, normal alignment, supple, normal inspection Cardiovascular: normal peripheral pulses, normal rate, regular rhythm, no gallop/murmur, no JVD Respiratory/Chest: chest wall non-tender, lungs clear, normal breath sounds, no respiratory distress, no accessory muscle use Abdomen: normal bowel sounds, non tender, soft, no organomegaly, no mass Extremities: normal range of motion Neurologic: terrazzo layer helper II-XII grossly normal, no motor/sensory deficits Skin: normal pigmentation, warm/dry; surgical wound clean and dry Assessment/Plan Problem List: (1) Stenosis, spinal, lumbar Assessment & Plan: S/P L3-S1 laminectomy 12/26/17-see surgery note. (2) Scoliosis (3) Lumbar herniated disc Assessment & Plan: S/P L4-5 discectomy. (4) Lumbar pain Assessment & Plan: Post Op-see pain management note. Antoine Segura MD Dec 28, 2017 13:11
[2017-12-28 16:00] VITALS: BP 141/83
[2017-12-28 20:00] VITALS: BP 146/92
[2017-12-29] VITALS: BP 132/76
[2017-12-29 04:00] VITALS: BP 130/70
[2017-12-29] MEDS: HYDROmorphone 1mg/ml Carpuject SUBQ PRN (04:29)
[2017-12-29 05:51] LABS: BASOPHILS % (AUTO) 0.8 % (0.0-2.0); EOSINOPHILS % (AUTO) 1.1 % (0.0-3.0); HEMATOCRIT 37.8 % (42.0-52.0); HEMOGLOBIN 13.6 G/DL (14.2-18.0); LYMPHOCYTES % (AUTO) 20.1 % (20.0-45.0); MEAN CORPUSCULAR VOLUME 88 FL (80-99); MONOCYTES % (AUTO) 10.5 % (1.0-10.0); NEUTROPHILS % (AUTO) 67.5 % (45.0-75.0); PLATELET COUNT 153 K/UL (150-450); RED CELL DISTRIBUTION WIDTH 10.3 % (11.6-14.8); WHITE BLOOD COUNT 6.9 K/UL (4.8-10.8)
[2017-12-29 06:01] LABS: ANION GAP 8 mmol/L (5-15); BLOOD UREA NITROGEN 19 mg/dL (7-18); CARBON DIOXIDE 27 MMOL/L (21-32); CHLORIDE 104 MMOL/L (98-107); POTASSIUM 3.4 MMOL/L (3.5-5.1); SODIUM 139 MMOL/L (136-145)
[2017-12-29 08:00] VITALS: BP 139/94
[2017-12-29] MEDS: Anastrazole 1mg tab ORAL SCH (08:36)
[2017-12-29] MEDS: Docusate 100mg cap ORAL SCH (08:36)
--- NOTE | 2017-12-29 09:14 | Progress Note ---
DATE: 12/29/2017 ACUTE PAIN MANAGEMENT PHYSICIAN PROGRESS NOTE MEDICATIONS: Medication administration record reviewed. Medications include Colace, Pepcid, and Arimidex. P.r.n. medications include Tylenol, milk of magnesia, Zofran, Fioricet, Benadryl, Mylanta, Phenergan, oxycodone, and Ambien. LABORATORY STUDIES: From this morning, December 29, 2017, are within normal limits. White count 7, hematocrit 38, platelets 153. Sodium 139, potassium 3.4, chloride 104, bicarb 27, BUN 19, creatinine 1.0, glucose 105, and calcium 9.0. I saw the patient at the bedside with the physical therapist, Jerrod, the nurse RN, Lyubov. I discussed the case with Dr. Landry, who has agreed to discharge home today. The patient has a ride to take him home in the next two hours. The physical therapy continues to student support counselor the patient with proper movements. The patient is currently sitting in the chair and has been able to move in and out of bed. The patient does have good social support at home. He slept much of the night using primarily oral oxycodone pills. I have discontinued the narcotics as the patient should be a candidate to discharge home shortly. The patient has no nausea symptoms. His headache complaints have resolved and the nursing changes lumbar spine dressing prior to discharge. The patient will follow up with Dr. Landry, in the outpatient clinic. I see no contraindication for discharge trial home at this time. Kale Benavidez M.D. DR: RUTH ANN JOB#: [id number] CC:
[2017-12-29] MEDS ORDERED: PERCOCET 10-321 EACH ORAL (10:17)
--- NOTE | 2017-12-30 13:15 | Discharge Summary ---
Discharge Summary Hospital Course Date of Admission Dec 26, 2017 at 08:14 Date of Discharge Dec 29, 2017 at 10:55 Admitting Diagnosis L3-S1 stenosis with LLE >>RLE radiculopathy Reason for Hospitalization: elective surgery HPI Carlos Giron is a 72 year old male who was admitted on Dec 26, 2017 at 08:14 for L3-S1 stenosis with LLE >>RLE radiculopathy . Patient was admitted for elective surgery. Consultations dr Cavazos-IM dr Benavidez - pain specialist Procedures s/p 12/26/[address] Landry 1. Laminectomy bilateral performed through a left-sided approach at L3-L4, L4-L5, L5-S1. 2. Discectomy L5 (disc extrusion from the L5-S1 level, but with cephalad migration to above the L5 nerve root). 3. Severe stenosis and deformity complicating the procedure above and beyond normal decompression. 4. Need for lysis of adhesions due to severe chronic deformity and inflammatory changes. 5. Dural repair left side at the level of the L4-L5 interspace. 6. Use of operating microscope. 7. Use of fluoroscopy for localizing purposes. 8. Neurodiagnostic monitoring. Hospital Course status post surgery course of recovery uneventful initially IV fluids s/p perioperative antibiotics neurovascular status closely monitored, stable incision clean, dry ,and intact pain management addressed pain specialist followed; pain controlled hemodynamically stable- improved L foot extension significantly compared with preoperative initially mild headache ( duet to lumbar dura leak, which was repaired) started on sitting tolerance test , gradually increased the angle no further headache started physical therapy ambulated Hein catheter dc fall precautions maintained; safe for ambulation tolerated diet , IV fluids discontinued GI prophylaxis provided antiemetics were on board as needed voided freely bowel regimen instituted patient was stable for discharge discharge instructions provided follow up with surgeon as outpatient as advised FINAL DIAGNOSES Scoliosis, severe, lumbar spine. Spinal stenosis, L3 through S1. Severe right greater than left foraminal stenosis and radiculopathy/L3-S1 stenosis with LLE >>RLE radiculopathy Left-sided disc herniation L5-S1 with cephalad extrusion under the L5 nerve root. s/p L3-S1 laminectomy, L4- 5 discectomy s/p L Dural repair lysis of adhesions Discharge Medications Continued Medications: Anastrozole* (Arimidex*) 1 Mg Tablet 1 MG PO DAILY, TAB (This prescription has been renewed) Aspirin* (Aspir 81*) 81 Mg Tablet.dr 81 MG ORAL DAILY, TAB (This prescription has been renewed) Hydrocodone Bit/Acetaminophen 5-325* ([place] 5-325*) 1 Each Tablet 1 TAB ORAL Q6H PRN for For Pain, #10 TAB 0 Refills (This prescription has been renewed) Meloxicam* (Meloxicam*) 15 Mg Tablet 15 MG PO DAILY, TAB (This prescription has been renewed) Oxycodone Hcl/Acetaminophen 10-325 Mg Tablet (Percocet 10-325 Mg Tablet*) 1 Each Tablet 1 TAB ORAL Q4H PRN for For Pain, #75 TAB (This prescription has been renewed) Testosterone Propionate (Testosterone Propionate) 5,000 Gm Powder 5 GM MC DAILY, GM (This prescription has been renewed) Zolpidem Tartrate* (Ambien*) 10 Mg Tablet 12.5 MG ORAL BEDTIME PRN for Insomnia, TAB 0 Refills (This prescription has been renewed) Discharge Condition Upon Discharge: stable Discharge Disposition Patient was discharged to Home (01) Discharge Instructions Discharge Instructions Special Instructions I have been assigned to complete a D/C Summary on this account. I was not involved in the patient management Nicole Martinez NP Dec 30, 2017 13:14
== END 2017-12-29 10:55 | disposition home or self-care (01) | DRG 519 ==
LOC: SDSOVERFLO 08:14 → 3E 16:18
PROC: 01NB0ZZ Release Lumbar Nerve, Open Approach (ICD-10-PCS; principal; 2017-12-26 12:00)
PROC: 00UT0JZ Supplement Spinal Meninges with Synthetic Substitute, Open Approach (ICD-10-PCS; principal; 2017-12-26 12:00)
PROC: 0ST20ZZ Resection of Lumbar Vertebral Disc, Open Approach (ICD-10-PCS; principal; 2017-12-26 12:00)
DX: M48.061 Spinal stenosis, lumbar region without neurogenic claudication (principal); G97.41 Accidental puncture or laceration of dura during a procedure; M51.27 Other intervertebral disc displacement, lumbosacral region; M41.86 Other forms of scoliosis, lumbar region; M48.07 Spinal stenosis, lumbosacral region; G89.18 Other acute postprocedural pain; J45.909 Unspecified asthma, uncomplicated; R51 Headache; G47.00 Insomnia, unspecified; K21.9 Gastro-esophageal reflux disease without esophagitis; F10.21 Alcohol dependence, in remission
CPT/HCPCS: 36415; 72020; 76001; 80048; 85025; 86850; 86900; 86901; 87081; 94003; 94150; J2250; J2405; J2710; J8499